=== PATIENT | female | born 1955 | race Caucasian/White ===

== ENCOUNTER 2025-08-01 18:21 | Emergency (ER) | payer MEDICARE, OTHER ==
[~2025-08-01] VITALS: Ht 162.6 cm; Wt 69.9 kg
[2025-08-01 19:12] VITALS: BP 141/79; TEMP 98; O2SAT 99
== END 2025-08-01 19:12 | disposition home or self-care (01) ==
LOC: ER 18:26
DX: S61.011A Laceration without foreign body of right thumb without damage to nail, initial encounter (principal); W27.4XXA Contact with kitchen utensil, initial encounter; Y93.89 Activity, other specified; Y92.89 Other specified places as the place of occurrence of the external cause; Y99.8 Other external cause status
CPT/HCPCS: 99282; A6403